=== PATIENT | male | born 1950 | race Caucasian/White ===

== ENCOUNTER 2016-09-27 15:21 | Emergency (ER) | payer OTHER ==
[~2016-09-27] VITALS: Ht 172.7 cm; Wt 80.0 kg
[2016-09-27 15:25] VITALS: BP 126/80
== END 2016-09-27 19:31 | disposition left against medical advice (07) ==
LOC: ER 15:23
DX: M54.9 Dorsalgia, unspecified (principal); Z53.21 Procedure and treatment not carried out due to patient leaving prior to being seen by health care provider